=== PATIENT | male | born 1985 | race Caucasian/White ===

== ENCOUNTER 2019-11-01 15:18 | Emergency (ER) | payer OTHER ==
[~2019-11-01] VITALS: Ht 180.3 cm; Wt 77.1 kg
[2019-11-01 15:58] VITALS: BP 146/119
== END 2019-11-01 15:58 | disposition home or self-care (01) ==
LOC: ED 15:18
DX: Z76.0 Encounter for issue of repeat prescription (principal); F17.210 Nicotine dependence, cigarettes, uncomplicated; G43.909 Migraine, unspecified, not intractable, without status migrainosus

== ENCOUNTER 2019-11-05 17:10 | Emergency (ER) | payer OTHER ==
[~2019-11-05] VITALS: Ht 180.3 cm; Wt 76.3 kg
[2019-11-05 17:16] VITALS: Ht 180.3 cm; Wt 76.3 kg
[2019-11-05 18:55] VITALS: BP 131/71
== END 2019-11-05 19:13 | disposition home or self-care (01) ==
LOC: ED 17:10
DX: F31.9 Bipolar disorder, unspecified (principal); Z76.0 Encounter for issue of repeat prescription; Z90.49 Acquired absence of other specified parts of digestive tract; Z88.8 Allergy status to other drugs, medicaments and biological substances

== ENCOUNTER 2019-12-26 22:24 | Emergency (ER) | payer OTHER ==
[~2019-12-26] VITALS: Ht 177.8 cm; Wt 72.6 kg
[2019-12-26 22:39] VITALS: Ht 177.8 cm; Wt 72.6 kg
[2019-12-26 23:22] LABS: CALCIUM 8.9 mg/dL (8.5-10.1); CARBON DIOXIDE 23.3 mmol/L (21-32); CHLORIDE SERUM 104 mmol/L (98-107); GFR1 > 60 mL/min; GLUCOSE SERUM 99 mg/dL (74-106); POTASSIUM SERUM 4.3 mmol/L (3.5-5.1); SODIUM SERUM 139 mmol/L (136-145)
[2019-12-26 23:24] LABS: BASOPHIL % 0.3 % (0-2); PLATELET COUNT 311 x10^3mcL (130-400); RED CELL DISTRIBUTION WIDTH 14.5 % (11.5-14.5)
[2019-12-26 23:26] LABS: ALBUMIN 4.4 g/dL (3.4-5.0); ALKALINE PHOSPHATASE 50 U/L (46-116); ALT/SGPT 21 U/L (16-63); AMYLASE 76 U/L (25-115); AST/SGOT 14 U/L (15-37); BILIRUBIN TOTAL 0.3 mg/dL (0.20-1.00); LIPASE 165 IU/L (73-393); MAGNESIUM 2.2 mg/dL (1.8-2.4); TOTAL PROTEIN, SERUM 7.9 g/dL (6.4-8.2)
[2019-12-27 02:11] VITALS: BP 140/94
== END 2019-12-27 02:24 | disposition home or self-care (01) ==
LOC: ED 22:24
PROVIDERS: Emergency Medicine
DX: F41.9 Anxiety disorder, unspecified (principal); R10.9 Unspecified abdominal pain; R11.10 Vomiting, unspecified; R63.8 Other symptoms and signs concerning food and fluid intake; G43.909 Migraine, unspecified, not intractable, without status migrainosus; Z88.8 Allergy status to other drugs, medicaments and biological substances
CPT/HCPCS: J1885; J2405; J7030

== ENCOUNTER 2020-01-01 02:17 | Inpatient (IN) | payer OTHER ==
[~2020-01-01] VITALS: Ht 180.3 cm; Wt 71.2 kg
--- NOTE | 2020-01-01 02:26 | NUR ---
PATIENT ARRIVED FROM HOME, C/O OF N/V, 10 GENERALIZE ABDOMINAL PAIN X2-3 DAYS ALSO PATIENT STATES 8/10 TESTICULAR PAIN. PATIENT AAOX4, PATIENT IS ACTIVELY VOMITING ON AND OFF, PATIENT VERY ANXIOUS, BUT COOPERATIVE. PATIENT ALSO STATES "I FEEL SOB" PATIENT SPEAKING IN FULL/CLEAR SENTENCES, SPO2 99% ROOM AIR. PATIENT DENIES ANY COUGH, FEVER, OR ANY OTHER SYMPTOMS AT THIS TIME. PATIENT STATES HE SMOKES MARIJUANA, DENIES USING ANY OTHER DRUGS OR ALCOHOL. PATIENT HX OF BIPOLAR, PATIENT STATES HE HAS NOT BEEN TAKING HIS MEDICATIONS FOR "1 MONTH" PATIENT DENIES SI AND HI AT THIS TIME. PATIENT PLACED ON FULL CM, +PULSE OX, GOWNED, SAFETY PRECAUTIONS IN PLACE, CALL LIGHT WITHIN REACH, WILL CONTINUE TO MONITOR.
--- NOTE | 2020-01-01 02:45 | NUR ---
DR. VERA AT BEDSIDE FOR MSE.
--- NOTE | 2020-01-01 02:53 | NUR ---
LAB AT BEDSIDE
--- NOTE | 2020-01-01 03:10 | NUR ---
MEDICATION ADMINISTRATION, PER ORDER, PLEASE SEE EMAR. PROVIDED PT WITH BLACKET AND TURNED LIGHTS OFF WITH DOOR OPEN FOR COMFORT, CALL LIGHT WITHIN REACH, WILL CONTINUE TO MONITOR.
[2020-01-01 03:20] LABS: BASOPHIL % 0.4 % (0-2); PLATELET COUNT 287 x10^3mcL (130-400); RED CELL DISTRIBUTION WIDTH 14.6 % (11.5-14.5)
[2020-01-01 03:43] LABS: ALBUMIN 4.7 g/dL (3.4-5.0); ALKALINE PHOSPHATASE 54 U/L (46-116); ALT/SGPT 40 U/L (16-63); AST/SGOT 11 U/L (15-37); BILIRUBIN TOTAL 0.38 mg/dL (0.20-1.00); CALCIUM 9.6 mg/dL (8.5-10.1); CHLORIDE SERUM 102 mmol/L (98-107); CREATININE SERUM 1.1 mg/dL (0.7-1.3); GFR1 > 60 mL/min; GLUCOSE SERUM 169 mg/dL (74-106); LIPASE 206 IU/L (73-393); POTASSIUM SERUM 3.8 mmol/L (3.5-5.1); SODIUM SERUM 138 mmol/L (136-145); TOTAL PROTEIN, SERUM 8.1 g/dL (6.4-8.2)
--- NOTE | 2020-01-01 04:06 | NUR ---
PATIENT TAKEN TO CT VIA WHEELCHAIR
[2020-01-01 04:13] LABS: UA SPECIFIC GRAVITY >=1.030 (1.005-1.035); microscopic required? YES; urine erythrocyte NEGATIVE (NEGATIVE)
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
--- NOTE | 2020-01-01 04:45 | NUR ---
PATIENT AMBULATED TO RESTROOM AND BACK TO BED 12 WITH STEADY GAIT, CALL LIGHT WITHIN REACH, WILL CONTINUE TO MONITOR.
[2020-01-01] MEDS ORDERED: LAMICTAL150 MG PO (04:46)
[2020-01-01] MEDS ORDERED: MP PO (04:54)
[2020-01-01] MEDS ORDERED: CYCLOBENZAPRINE10 M1 PO (04:57)
[2020-01-01] MEDS ORDERED: OMEPRAZOLE40 M1 PO (04:57)
[2020-01-01] MEDS ORDERED: INDERAL LA60 MG (04:58)
--- NOTE | 2020-01-01 05:58 | NUR ---
PATIENT C/O NAUSEA AND ANXIETY AT THIS TIME. MEDICATED WITH ATIVAN AND REGLAN AT THIS TIME. SEE EMAR.
--- NOTE | 2020-01-01 06:13 | NUR ---
TC FROM PATIENT MOTHER. VERBAL PERMISSION FROM PATIENT TO SPEAK TO MOTHER OBTAINED. MOTHER WANTS TO MAKE SURE WE KNOW THAT THE PATIENT TAKES LAMICTAL FOR SEIZURE AND/OR BIPOLAR DISORDER. MOTHER EXPRESSED GRATITUDE FOR SEEING THE PATIENT QUICKLY AND FOR ADMITTING THE PATIENT. CONFIRMED THAT LAMICTAL IS ON THE MED REC AND ASSURED PT MOTHER THAT WE HOPED TO BE ABLE TO CONTINUE TO PROVIDE GOOD CARE FOR HIM IN THE ED AND THROUGHOUT HIS STAY.
--- NOTE | 2020-01-01 06:17 | NUR ---
REPORT GIVEN TO KIM SIMON, EXT. [id number] FOR CONTINUATION OF CARE, ALL QUESTIONS ADDRESSED.
--- NOTE | 2020-01-01 06:20 | NUR ---
RECEIVED REPORT FROM BRAN SIMON FROM ED. AWAITING FOR PT TO ARRIVE TO UNIT.
--- NOTE | 2020-01-01 06:42 | NUR ---
PT ARRIVED TO UNIT VIA [facility]ER[facility] ACCOMPANIED BY RN. PT AAOX4 AND C/O MIGRAINE. PT IS MED-SURG AND DENIES CP/PRESSURE. PT LUNG SOUNDS CTA ON RA. PT DENIES SOB OR RESP DISTRESS. PT ABD SOFT/ROUND WITH ACTIVE BS X4. PT C/O N/V AND ABD PAIN 03/12. PT HAS GENERALIZED WEAKNESS, BUT IS AMBULATORY. PT C/O TESTICULAR PAIN 03/12. PT IV TO RAC 20G PATENT AND INTACT. PER MAR, LR INFUSING WELL AT 80ML/HR. NO S/S OF REDNESS, PAIN, OR SWELLING. ORIENTED PT TO ROOM AND CALL LIGHT. CALL LIGHT WITHIN REACH. BED IN IN LOWEST POSITION. SIDE RAILS X2 UP. WILL ENDORSE TO DAY SHIFT NURSE.
[2020-01-01 06:51] VITALS: BP 145/67
[2020-01-01 07:16] VITALS: BP 145/67
--- NOTE | 2020-01-01 07:17 | NUR ---
ENDORSED CARE TO CYNDI SIMON AND TIM SIMON. ALL QUESTIONS AND CONCERNS ANSWERED.
--- NOTE | 2020-01-01 08:00 | NUR ---
RECEIVED PT FROM PM NURSE. PT IS A/O X 4. PT IS RESTING IN BED AND AWAKE. COOPERATIVE. NO SOB NOTED. PT IS MED SURG. LUNG SOUNDS CTA ON RA. CHEST RISES AND FALLS EVENLY. ABDOMEN SOFT AND NON DISTENDED WITH NORMACTIVE BS X4 QUADRANTS. LAST BM 12/31. NO C/O OF PAIN AT THIS TIME. PT IS AMBULATORY WITH GENERALIZED WEAKNESS. SKIN INTACT. IV ON RAC 20G. PATENT AND INTACT. FLUSHES WELL WITH NO DIFFICULTY. ON LR RUNNING AT 80ML/HR. INSTRUCTED PATIENT TO USE THE CALL LIGHT SHOULD ASSISTANCE BE NEEDED. BED IN LOWEST POSITION. WILL CONTINUE TO MONITOR.
[2020-01-01 08:15] VITALS: BP 116/74
[2020-01-01 08:45] LABS: PLATELET COUNT 268 x10^3mcL (130-400)
[2020-01-01 08:46] LABS: BASOPHIL % 0 % (0-2)
[2020-01-01 08:57] LABS: ALBUMIN 4.3 g/dL (3.4-5.0); ALKALINE PHOSPHATASE 49 U/L (46-116); ALT/SGPT 22 U/L (16-63); AST/SGOT 11 U/L (15-37); BILIRUBIN TOTAL 0.3 mg/dL (0.20-1.00); CALCIUM 8.7 mg/dL (8.5-10.1); CARBON DIOXIDE 24.8 mmol/L (21-32); CHLORIDE SERUM 105 mmol/L (98-107); CREATININE SERUM 0.8 mg/dL (0.7-1.3); GFR1 > 60 mL/min; GLUCOSE SERUM 114 mg/dL (74-106); POTASSIUM SERUM 4.7 mmol/L (3.5-5.1); SODIUM SERUM 140 mmol/L (136-145); TOTAL PROTEIN, SERUM 7.5 g/dL (6.4-8.2)
--- NOTE | 2020-01-01 10:30 | NUR ---
PT REQUESTS TO HAVE SHOWER PRIVILEDGES. NOTIFED DR STOLL OF PT REQUEST. DR JERMAN FISHER FOR PATIENT TO TAKE SHOWERS WHILE IN THE HOSPITAL. NOTED AND CARRIED OUT.
[2020-01-01 12:33] VITALS: BP 122/82
[2020-01-01 16:16] VITALS: BP 128/92
--- NOTE | 2020-01-01 18:44 | NUR ---
PATIENT RESTING COMFORTABLY IN BED AT THIS TIME. WILL ENDORSE CONTINUITY OF CARE TO THE PM NURSE.
--- NOTE | 2020-01-01 19:05 | NUR ---
PT RECEIVED FROM AM NURSE. PT A/O X4, ABLE TO MAKE NEEDS KNOWN. MED-SURG, DENIES ANY CP/PRESSURE. PULSES PALPABLE, NO EDEMA PRESENT. BREATHING IS EVEN AND UNLABORED ON RA, NO RESP DISTRESS NOTED. ABD SOFT AND NONDISTENDED, NO N/V PRESENT. VOIDS FREELY, BRP. MILD GENERALIZED WEAKNESS, AMBULATORY W/ STEADY GAIT. SKIN IS WARM AND DRY, INTACT. PT DENIES HAVING ANY PAIN AT THIS TIME TIME. IVF INFUSING WELL TO [facility], SITE WNL. NO ACUTE DISTRESS NOTED. BED IN LOWEST SETTING, SIDE RAILS UP X2, CALL LIGHT WITHIN REACH. WILL CONT TO MONITOR.
[2020-01-01 19:15] VITALS: BP 106/65
--- NOTE | 2020-01-01 19:17 | NUR ---
I HAVE REVIEWED THE DATA COLLECTION BY GENIA (NAME):TIM ALEMAN. ENTERED ON (DATE/TIME):01/01/20, 7A-7P. I CONCUR WITH THE DATA AND ANY EXCEPTIONS OR COMMENTS ARE LISTED BELOW:
--- NOTE | 2020-01-01 20:02 | NUR ---
PT C/O NAUSEA, PRN ZOFRAN GIVEN PER EMAR AND EMESIS BAG PROVIDED. PT REQUESTING TO SHOWER, TOWELS PROVIDED, SL TO RAC. NO ACUTE DISTRESS NOTED. WILL CONT TO MONITOR.
--- NOTE | 2020-01-01 21:37 | NUR ---
PT C/O 01/10 ABD PAIN, PRN TORADOL IVP GIVEN PER EMAR. NO ACUTE DISTRESS NOTED. WILL CONT TO MONITOR.
--- NOTE | 2020-01-01 23:13 | NUR ---
PT C/O ANXIETY, PRN ATIVAN GIVEN PER EMAR. NO ACUTE DISTRESS NOTED. WILL CONT TO MONITOR.
--- NOTE | 2020-01-02 01:13 | NUR ---
PT RESTING IN BED WITH EYES CLOSED, BUT IS EASILY AROUSABLE. BREATHING IS EVEN AND UNLABORED, NO RESP DISTRESS NOTED. PT DENIES HAVING ANY PAIN AT THIS TIME. IVF IN[facility]USING WELL TO [facility], SITE WNL. NO ACUTE DISTRESS NOTED. CALL LIGHT WITHIN REACH. WILL CONT TO MONITOR.
[2020-01-02 05:10] LABS: BASOPHIL % 0.4 % (0-2); PLATELET COUNT 258 x10^3mcL (130-400)
[2020-01-02 05:32] LABS: CALCIUM 8.4 mg/dL (8.5-10.1); CARBON DIOXIDE 27.3 mmol/L (21-32); CHLORIDE SERUM 107 mmol/L (98-107); CREATININE SERUM 0.9 mg/dL (0.7-1.3); GFR1 > 60 mL/min; GLUCOSE SERUM 100 mg/dL (74-106); POTASSIUM SERUM 4.3 mmol/L (3.5-5.1); SODIUM SERUM 141 mmol/L (136-145)
[2020-01-02 05:41] VITALS: BP 121/82
--- NOTE | 2020-01-02 05:58 | NUR ---
PT SLEPT AT INTERVALS THROUGHOUT THE EVENING. BREATHING IS EVEN AND UNLABORED, NO RESP DISTRESS NTOED. PT DENIES HAVING ANY PAIN AT THIS TIME. PT C/O ANXIETY, PRN ATIVAN GIVEN PER EMAR. IVF INFUSING WELL TO [facility], SITE WNL. NO ACUTE CHANGES ENCOUNTERED DURING SHIFT. ALL NEEDS MET AND ANTICIPATED. CALL LIGHT WITHIN REACH. WILL ENDORSE CARE TO AM NURSE.
--- NOTE | 2020-01-02 07:40 | NUR ---
RECEIVED PT IN BED. ASSESSED AND DOCUMENTED. DENIES PAIN THIS TIME. SLEEPING. SAFTEY PRECAUTIONS ARE IN PLACE. WILL MONITOR.
[2020-01-02 08:03] VITALS: BP 102/54
--- NOTE | 2020-01-02 12:57 | NUR ---
PT C/O ABD PAIN,01/10. TORADOL IV GIVEN ORDERED. WILL MONITOR.
[2020-01-02 13:13] VITALS: BP 102/54
--- NOTE | 2020-01-02 13:30 | NUR ---
PT RESTING IN BED COMFORTABLY. DENIES ANY PAIN. NO DISTRESS NOTED. WILL MONITOR.
--- NOTE | 2020-01-02 15:50 | NUR ---
DISCHARGE INSTRUCTIONS GIVEN. PB SIGNED AND SEND WITH PT. IV REMOVED AND DRESSING APPLIED. PT DENIES PAIN THIS TIME. NO DISTRESS NOTED. PT SAID HER FRIEND IS IN THE LOBBY TO PICK HIM UP. SURGICAL SERVICES TECH WHEELED PT DOWN TO LOBBY. PT DC HOME.
== END 2020-01-02 16:00 | disposition home or self-care (01) | DRG 249 ==
LOC: ED 02:17 → MU 04:52
PROVIDERS: Emergency Medicine; ADMIT Internal Medicine Pulmonary Disease
DX: R11.15 Cyclical vomiting syndrome unrelated to migraine (principal); F31.9 Bipolar disorder, unspecified; Z88.8 Allergy status to other drugs, medicaments and biological substances; G43.909 Migraine, unspecified, not intractable, without status migrainosus; Z90.49 Acquired absence of other specified parts of digestive tract; K58.9 Irritable bowel syndrome, unspecified
CPT/HCPCS: G0378; J1200; J1644; J1885; J2405; J2765; J3490; J7030; J7120

== ENCOUNTER 2020-01-23 12:08 | Emergency (ER) | payer OTHER ==
[~2020-01-23] VITALS: Ht 170.2 cm; Wt 74.8 kg
[~2020-01-23 12:08] MED LIST: CYCLOBENZAPRINE10 M1 PO; INDERAL LA60 MG; LAMICTAL150 MG PO; MP PO; OMEPRAZOLE40 M1 PO
[2020-01-23 12:32] VITALS: Ht 170.2 cm; Wt 74.8 kg
[2020-01-23 14:33] LABS: BASOPHIL % 0.5 % (0-2); PLATELET COUNT 329 x10^3mcL (130-400)
[2020-01-23 14:35] LABS: RED CELL DISTRIBUTION WIDTH 15.1 % (11.5-14.5)
[2020-01-23 15:02] LABS: ALBUMIN 4.3 g/dL (3.4-5.0); ALKALINE PHOSPHATASE 59 U/L (46-116); ALT/SGPT 28 U/L (16-63); AST/SGOT 15 U/L (15-37); BILIRUBIN TOTAL 0.3 mg/dL (0.20-1.00); CHLORIDE SERUM 101 mmol/L (98-107); CREATININE SERUM 0.9 mg/dL (0.7-1.3); GFR1 > 60 mL/min; GLUCOSE SERUM 103 mg/dL (74-106); LIPASE 207 IU/L (73-393); POTASSIUM SERUM 4.7 mmol/L (3.5-5.1); SODIUM SERUM 138 mmol/L (136-145); TOTAL PROTEIN, SERUM 8.1 g/dL (6.4-8.2)
[2020-01-23 15:54] VITALS: BP 128/83
== END 2020-01-23 15:54 | disposition home or self-care (01) ==
LOC: ED 12:08
PROVIDERS: Emergency Medicine
DX: G43.A0 Cyclical vomiting, in migraine, not intractable (principal); Z90.49 Acquired absence of other specified parts of digestive tract; Z88.8 Allergy status to other drugs, medicaments and biological substances
CPT/HCPCS: J2405; J3490

== ENCOUNTER 2020-01-27 00:54 | Emergency (ER) | payer OTHER ==
[~2020-01-27] VITALS: Ht 167.6 cm; Wt 75.3 kg
[2020-01-27 01:04] VITALS: Ht 167.6 cm; Wt 75.3 kg
[2020-01-27 03:48] LABS: BASOPHIL % 0.2 % (0-2); PLATELET COUNT 310 x10^3mcL (130-400); RED CELL DISTRIBUTION WIDTH 14.9 % (11.5-14.5)
[2020-01-27 04:05] LABS: CALCIUM 8.7 mg/dL (8.5-10.1); CARBON DIOXIDE 28.4 mmol/L (21-32); CHLORIDE SERUM 101 mmol/L (98-107); CREATININE SERUM 0.9 mg/dL (0.7-1.3); GFR1 > 60 mL/min; GLUCOSE SERUM 125 mg/dL (74-106); SODIUM SERUM 137 mmol/L (136-145)
[2020-01-27 04:13] LABS: ALBUMIN 3.8 g/dL (3.4-5.0); ALKALINE PHOSPHATASE 45 U/L (46-116); ALT/SGPT 27 U/L (16-63); AMYLASE 68 U/L (25-115); AST/SGOT 14 U/L (15-37); BILIRUBIN TOTAL 0.2 mg/dL (0.20-1.00); LIPASE 179 IU/L (73-393); TOTAL PROTEIN, SERUM 7.3 g/dL (6.4-8.2)
[2020-01-28 11:22] VITALS: BP 124/52
== END 2020-01-28 11:22 | disposition home or self-care (01) ==
LOC: ED 00:54
PROVIDERS: Emergency Medicine
DX: R45.851 Suicidal ideations (principal)
CPT/HCPCS: J0780; J1885; J2060; J2405; U0003-CS

== ENCOUNTER 2020-02-08 04:18 | Emergency (ER) | payer OTHER ==
[~2020-02-08] VITALS: Ht 180.3 cm; Wt 72.6 kg
[2020-02-08 04:35] VITALS: Ht 180.3 cm; Wt 72.6 kg
[2020-02-08 05:07] LABS: microscopic required? NO
[2020-02-08 05:18] LABS: BASOPHIL % 0.3 % (0-2); PLATELET COUNT 325 x10^3mcL (130-400)
[2020-02-08 05:22] LABS: RED CELL DISTRIBUTION WIDTH 15.3 % (11.5-14.5)
[2020-02-08 05:22] LABS: UA SPECIFIC GRAVITY >=1.030 (1.005-1.035); urine erythrocyte NEGATIVE (NEGATIVE)
[2020-02-08 05:28] LABS: ALBUMIN 4.1 g/dL (3.4-5.0); ALKALINE PHOSPHATASE 45 U/L (46-116); ALT/SGPT 28 U/L (16-63); AST/SGOT 19 U/L (15-37); BILIRUBIN TOTAL 0.27 mg/dL (0.20-1.00); CALCIUM 8.9 mg/dL (8.5-10.1); CARBON DIOXIDE 23.3 mmol/L (21-32); CHLORIDE SERUM 101 mmol/L (98-107); GFR1 > 60 mL/min; GLUCOSE SERUM 132 mg/dL (74-106); LIPASE 192 IU/L (73-393); POTASSIUM SERUM 4.1 mmol/L (3.5-5.1); SODIUM SERUM 135 mmol/L (136-145); TOTAL PROTEIN, SERUM 7.5 g/dL (6.4-8.2)
[2020-02-08 07:02] VITALS: BP 140/85
== END 2020-02-08 07:02 | disposition home or self-care (01) ==
LOC: ED 04:18
PROVIDERS: Emergency Medicine
DX: R10.9 Unspecified abdominal pain (principal); R11.10 Vomiting, unspecified; G43.909 Migraine, unspecified, not intractable, without status migrainosus; Z76.0 Encounter for issue of repeat prescription; Z90.49 Acquired absence of other specified parts of digestive tract; Z88.8 Allergy status to other drugs, medicaments and biological substances
CPT/HCPCS: J2405; J3490; J7030

== ENCOUNTER 2020-02-14 15:11 | Emergency (ER) | payer OTHER ==
[~2020-02-14] VITALS: Ht 177.8 cm; Wt 72.6 kg
[2020-02-14 15:21] VITALS: Ht 177.8 cm; Wt 72.6 kg
[2020-02-14 16:31] VITALS: BP 158/71
== END 2020-02-14 16:31 | disposition home or self-care (01) ==
LOC: ED 15:11
DX: F32.9 Major depressive disorder, single episode, unspecified (principal); F41.9 Anxiety disorder, unspecified; R11.10 Vomiting, unspecified; G43.909 Migraine, unspecified, not intractable, without status migrainosus; Z76.0 Encounter for issue of repeat prescription; Z90.49 Acquired absence of other specified parts of digestive tract; Z88.8 Allergy status to other drugs, medicaments and biological substances
CPT/HCPCS: Q0162

== ENCOUNTER 2020-02-21 12:41 | Emergency (ER) | payer OTHER ==
[~2020-02-21] VITALS: Ht 167.6 cm; Wt 74.8 kg
[2020-02-21 13:21] VITALS: Ht 167.6 cm; Wt 74.8 kg
[2020-02-21 13:46] LABS: PLATELET COUNT 289 x10^3mcL (130-400)
[2020-02-21 13:47] LABS: BASOPHIL % 0 % (0-2); RED CELL DISTRIBUTION WIDTH 15.4 % (11.5-14.5)
[2020-02-21 14:08] LABS: CALCIUM 8.8 mg/dL (8.5-10.1); CARBON DIOXIDE 22.9 mmol/L (21-32); CHLORIDE SERUM 101 mmol/L (98-107); GFR1 > 60 mL/min; GLUCOSE SERUM 137 mg/dL (74-106); POTASSIUM SERUM 4.3 mmol/L (3.5-5.1); SODIUM SERUM 136 mmol/L (136-145)
[2020-02-21 14:12] LABS: ALBUMIN 3.9 g/dL (3.4-5.0); ALKALINE PHOSPHATASE 39 U/L (46-116); ALT/SGPT 22 U/L (16-63); AST/SGOT 12 U/L (15-37); BILIRUBIN TOTAL 0.2 mg/dL (0.20-1.00); TOTAL PROTEIN, SERUM 7.3 g/dL (6.4-8.2)
[2020-02-21 14:51] VITALS: BP 142/79
== END 2020-02-21 14:51 | disposition home or self-care (01) ==
LOC: ED 12:41
PROVIDERS: Emergency Medicine
DX: F31.9 Bipolar disorder, unspecified (principal); F41.9 Anxiety disorder, unspecified; G43.909 Migraine, unspecified, not intractable, without status migrainosus; Z90.49 Acquired absence of other specified parts of digestive tract; Z88.8 Allergy status to other drugs, medicaments and biological substances
CPT/HCPCS: G0480; Q0162

== ENCOUNTER 2020-02-27 09:06 | Emergency (ER) | payer OTHER ==
[~2020-02-27] VITALS: Ht 180.3 cm; Wt 72.6 kg
[2020-02-27 09:21] VITALS: Ht 180.3 cm; Wt 72.6 kg
[2020-02-27 10:00] LABS: BASOPHIL % 0.4 % (0-2); PLATELET COUNT 357 x10^3mcL (130-400)
[2020-02-27 10:03] LABS: RED CELL DISTRIBUTION WIDTH 15.1 % (11.5-14.5)
[2020-02-27 10:17] LABS: CALCIUM 9.7 mg/dL (8.5-10.1); CARBON DIOXIDE 27.2 mmol/L (21-32); CHLORIDE SERUM 98 mmol/L (98-107); CREATININE SERUM 1.1 mg/dL (0.7-1.3); GFR1 > 60 mL/min; GLUCOSE SERUM 125 mg/dL (74-106); POTASSIUM SERUM 4.7 mmol/L (3.5-5.1); SODIUM SERUM 136 mmol/L (136-145)
[2020-02-27 10:22] LABS: ALBUMIN 4.7 g/dL (3.4-5.0); ALKALINE PHOSPHATASE 53 U/L (46-116); ALT/SGPT 41 U/L (16-63); AST/SGOT 89 U/L (15-37); BILIRUBIN TOTAL 0.35 mg/dL (0.20-1.00); LIPASE 119 IU/L (73-393)
[2020-02-27 10:27] LABS: TOTAL PROTEIN, SERUM 8.6 g/dL (6.4-8.2)
[2020-02-27 11:29] LABS: UA SPECIFIC GRAVITY 1.015 (1.005-1.035); microscopic required? YES; urine erythrocyte NEGATIVE (NEGATIVE)
[2020-02-27 13:07] VITALS: BP 150/101
[2020-02-28 05:10] LABS: RAPID PLASMA REAGIN Non Reactive (Non Reactive)
== END 2020-02-27 13:07 | disposition home or self-care (01) ==
LOC: ED 09:06
PROVIDERS: Student in an Organized Health Care Education/Training Program
DX: N43.3 Hydrocele, unspecified (principal); G43.909 Migraine, unspecified, not intractable, without status migrainosus; Z90.49 Acquired absence of other specified parts of digestive tract; Z88.8 Allergy status to other drugs, medicaments and biological substances
CPT/HCPCS: 87491; 87591; J0696; J1885; J2270; J2405; J3490; J7060; Q0092

== ENCOUNTER 2020-03-06 07:03 | Emergency (ER) | payer OTHER ==
[~2020-03-06] VITALS: Ht 180.3 cm; Wt 73.5 kg
[2020-03-06 07:16] VITALS: BP 161/110; Ht 180.3 cm; Wt 73.5 kg
== END 2020-03-06 07:55 | disposition home or self-care (01) ==
LOC: ED 07:03
DX: F41.9 Anxiety disorder, unspecified (principal); G43.909 Migraine, unspecified, not intractable, without status migrainosus; F31.81 Bipolar II disorder; Z76.0 Encounter for issue of repeat prescription; Z88.8 Allergy status to other drugs, medicaments and biological substances
CPT/HCPCS: Q0162

== ENCOUNTER 2020-03-26 09:42 | Emergency (ER) | payer OTHER ==
[~2020-03-26] VITALS: Ht 180.3 cm; Wt 70.8 kg
[2020-03-26 09:51] VITALS: Ht 180.3 cm; Wt 70.8 kg
[2020-03-26 10:33] LABS: CALCIUM 9.3 mg/dL (8.5-10.1); CARBON DIOXIDE 23.3 mmol/L (21-32); CHLORIDE SERUM 103 mmol/L (98-107); GFR1 > 60 mL/min; GLUCOSE SERUM 159 mg/dL (74-106); POTASSIUM SERUM 4.3 mmol/L (3.5-5.1); SODIUM SERUM 139 mmol/L (136-145)
[2020-03-26 10:35] LABS: BASOPHIL % 0.4 % (0-2); PLATELET COUNT 364 x10^3mcL (130-400); RED CELL DISTRIBUTION WIDTH 15.1 % (11.5-14.5)
[2020-03-26 10:37] LABS: ALBUMIN 4.5 g/dL (3.4-5.0); ALKALINE PHOSPHATASE 45 U/L (46-116); ALT/SGPT 38 U/L (16-63); AST/SGOT 17 U/L (15-37); BILIRUBIN TOTAL 0.4 mg/dL (0.20-1.00); TOTAL PROTEIN, SERUM 7.9 g/dL (6.4-8.2)
[2020-03-26 10:38] LABS: microscopic required? NO
[2020-03-26 11:15] LABS: UA SPECIFIC GRAVITY >=1.030 (1.005-1.035); urine erythrocyte NEGATIVE (NEGATIVE)
[2020-03-26 11:28] LABS: AMPHETAMINE QUAL UR NONE DETECTED (See below)
[2020-03-28 09:04] VITALS: BP 149/94
== END 2020-03-28 10:59 ==
LOC: ED 09:42
PROVIDERS: Student in an Organized Health Care Education/Training Program
DX: T43.212A Poisoning by selective serotonin and norepinephrine reuptake inhibitors, intentional self-harm, initial encounter (principal); R11.10 Vomiting, unspecified; F31.9 Bipolar disorder, unspecified; F41.9 Anxiety disorder, unspecified; Z90.49 Acquired absence of other specified parts of digestive tract; Z88.8 Allergy status to other drugs, medicaments and biological substances; Z20.828 Contact with and (suspected) exposure to other viral communicable diseases; Y92.89 Other specified places as the place of occurrence of the external cause
CPT/HCPCS: G0480; J1885; J2060; J3490; Q0162; U0003-CS

== ENCOUNTER 2020-09-03 17:11 | Inpatient (IN) | payer OTHER ==
[~2020-09-03] VITALS: Ht 167.6 cm; Wt 75.7 kg
[2020-09-03 17:20] VITALS: Ht 167.6 cm; Wt 75.7 kg
[2020-09-03 18:43] LABS: BASOPHIL % 0.3 % (0.2-1.5); PLATELET COUNT 352 x10^3mcL (152-348)
[2020-09-03 18:44] LABS: CALCIUM 9.1 mg/dL (8.5-10.1); CARBON DIOXIDE 28.2 mmol/L (21-32); CHLORIDE SERUM 102 mmol/L (98-107); GFR1 > 60 mL/min; GLUCOSE SERUM 98 mg/dL (74-106); POTASSIUM SERUM 4.1 mmol/L (3.5-5.1); SODIUM SERUM 142 mmol/L (136-145)
[2020-09-03 18:48] LABS: ALBUMIN 4.6 g/dL (3.4-5.0); ALKALINE PHOSPHATASE 62 U/L (46-116); ALT/SGPT 29 U/L (16-63); AST/SGOT 17 U/L (15-37); BILIRUBIN TOTAL 0.2 mg/dL (0.20-1.00); TOTAL PROTEIN, SERUM 8.2 g/dL (6.4-8.2)
[2020-09-03 21:53] LABS: AMPHETAMINE QUAL UR NONE DETECTED (See below)
[2020-09-05 00:46] VITALS: BP 117/74
== END 2020-09-05 00:46 | DRG 251 ==
LOC: ED 17:11 → MU 09-04 06:03
PROVIDERS: Emergency Medicine; ADMIT Internal Medicine; ATTEND Internal Medicine
DX: R10.9 Unspecified abdominal pain (principal); R45.851 Suicidal ideations; F31.9 Bipolar disorder, unspecified; F41.9 Anxiety disorder, unspecified; Z20.822 Contact with and (suspected) exposure to COVID-19; G43.909 Migraine, unspecified, not intractable, without status migrainosus; Z90.49 Acquired absence of other specified parts of digestive tract; K58.9 Irritable bowel syndrome, unspecified
CPT/HCPCS: G0378; G0480; J1650; J1885; J2405; J2550; J3490; J7030; Q0177; U0003

== ENCOUNTER 2020-10-18 10:27 | Emergency (ER) | payer OTHER ==
[~2020-10-18] VITALS: Ht 180.3 cm; Wt 853.2 kg
[2020-10-18 10:50] VITALS: BP 150/97; Ht 180.3 cm; Wt 853.2 kg
== END 2020-10-18 12:41 | disposition home or self-care (01) ==
LOC: ED 10:27
DX: F31.9 Bipolar disorder, unspecified (principal); G43.909 Migraine, unspecified, not intractable, without status migrainosus; F41.9 Anxiety disorder, unspecified; Z90.49 Acquired absence of other specified parts of digestive tract; Z76.0 Encounter for issue of repeat prescription; Z88.8 Allergy status to other drugs, medicaments and biological substances